=== PATIENT | female | born 1965 | race Asian ===

== ENCOUNTER 2019-06-05 12:50 | Inpatient (IN) | payer OTHER ==
[~2019-06-05] VITALS: Ht 162.6 cm; Wt 65.3 kg
--- NOTE | 2019-06-05 12:51 | NUR ---
PT AMBULATED TO ROOM 7 FOR EVAL.
--- NOTE | 2019-06-05 13:05 | NUR ---
PT PRESENTS TO ED WITH C/O RT LEG PAIN/WEAKNESS WORSENING X4 DAYS. PT STS SHE HAS BEEN DRAGGING HER RT FOOT SINCE FRIDAY AND SHE FEELS PAIN UPON PALPATION. PT DENIES DIZZINESS, CP, SOB. PT AAOX4, RESP E/U, PERRLA NOTED, NO ACUTE DISTRESS NOTED AT THIS TIME.
[2019-06-05 13:15] LABS: BASOPHIL % 0.7 % (0-2); PLATELET COUNT 181 x10^3mcL (130-400); RED CELL DISTRIBUTION WIDTH 13.1 % (11.5-14.5)
[2019-06-05 13:37] LABS: ALBUMIN 3.5 g/dL (3.4-5.0); ALKALINE PHOSPHATASE 67 U/L (46-116); ALT/SGPT 36 U/L (14-59); AST/SGOT 14 U/L (15-37); BILIRUBIN TOTAL 0.46 mg/dL (0.20-1.00); CARBON DIOXIDE 27.9 mmol/L (21-32); CHLORIDE SERUM 106 mmol/L (98-107); CREATININE SERUM 0.9 mg/dL (0.6-1.0); GFR1 > 60 mL/min; GLUCOSE SERUM 171 mg/dL (74-106); POTASSIUM SERUM 3.9 mmol/L (3.5-5.1); SODIUM SERUM 141 mmol/L (136-145); TOTAL PROTEIN, SERUM 6.8 g/dL (6.4-8.2)
--- NOTE | 2019-06-05 14:26 | NUR ---
PT AMBULATED TO RESTROOM, STEADY GAIT NOTED.
--- NOTE | 2019-06-05 15:39 | NUR ---
REPORT GIVEN TO EMS TRANSPORTING PT TO [facility] FOR CT SCAN.
--- NOTE | 2019-06-05 15:42 | NUR ---
MEI CORONEL VIA [facility] FOR CT.
--- NOTE | 2019-06-05 17:11 | NUR ---
PT RETURNED FROM [facility], AAOX4, RESP E/U, NO ACUTE DISTRESS NOTED AT THIS TIME.
--- NOTE | 2019-06-05 18:05 | NUR ---
PT SPEAKING WITH TELE NEURO MD.
--- NOTE | 2019-06-05 19:41 | NUR ---
PT APPEARS TO BE RESTING COMFORTABLY. PT OBSERVED TALKING WITH DAUGHTER AT BEDISDE AND WATCHING TV. VITAL SIGNS STABLE. RESPIRATIONS EVEN AND UNLABORED. NO ACUTE DISTRESS NOTED.
[2019-06-05 19:42] LABS: CHOLESTEROL/HDL RATIO 4.1; PHOSPHOROUS 3.6 mg/dL (2.5-4.9)
[2019-06-05] MEDS ORDERED: SYNTHROID0.05 MG PO (19:43)
[2019-06-05 20:23] LABS: FREE T4 1.15 ng/dL (0.76-1.46); FREE THYROXINE INDEX 3.5 ug/dL (1.4-4.5); T4(THYROXINE) 9.1 ug/dL (4.7-13.3)
--- NOTE | 2019-06-05 20:30 | NUR ---
REPORT GIVEN TO [facility] ON [facility] FOR CONTINUATION OF CARE.
--- NOTE | 2019-06-05 21:11 | NUR ---
RECEIVED PT VIA [employer] FROM E/D, ACCOMPANIED BY RN, TRANSPORTER, PT'S , HILDA PIERCE, AND PT'S DAUGHTER, LOLA PIERCE (ALSO TRAINING COORDINATOR). PT A/A/O X 4, CALM, COOPERATIVE. PT AMBULATORY, ABLE TO WALK WITH SLOW, LIMPING GAIT D/T RLE DISCOMFORT DESCRIBED "LAZY"; FALL RISK PROTOCOL IN PLACE. ON TELE # 8, HR 54, DENIES CHEST PAIN OR DISCOMFORT AT THIS TIME. SCD BY BEDSIDE. NO ACUTE RESPIRATORY DISTRESS NOTED. IV SITE RH 22G, CDI. ORIENTED PT AND FAMILY MEMBERS TO ROOM, BED CONTROLS, CALL LIGHT SYSTEM. SIDE RAILS UP X 2, BED IN LOW POSITION. WILL ENDORSE TO ROJAS POPE.
--- NOTE | 2019-06-05 21:15 | NUR ---
RECEIVED REPORT FROM ROJAS GREGORY. PATIENT WAS SEEN RESTING COMFORTABLY IN BED WITH FAMILY AT BEDSIDE. NO DISTRESS NOTED. BREATHING EVEN AND UNLABORED ON ROOM AIR. NO SOB OR RESP DISTRESS NOTED. IV TO THE RH, 22G. SALINE LOCK. PATENT AND INTACT. NO REDNESS OR SWELLING NOTED. DENIES CHEST PAIN/PRESSURE. NO C/O PAIN. PATIENT REPORTS SHE IS AMBULATORY, BUT WITH A LIMP. SAFETY MEASURES IN PLACE. BED IS LOCKED AND IN THE LOWEST POSITION. SIDE RAILS UP X2. CALL LIGHT IS WITHIN REACH. WILL CONTINUE TO MONITOR.
[2019-06-05 21:32] LABS: T3 TOTAL 0.73 ng/mL
[2019-06-05 21:57] VITALS: BP 114/64
--- NOTE | 2019-06-06 00:07 | NUR ---
RESTING IN BED WITH EYES CLOSED. NO DISTRESS NOTED. BREATHING EVEN AND UNLABORED ON ROOM AIR. NO SOB NOTED. SAFETY MEASURES IN PLACE. CALL LIGHT IS WITHIN REACH. WILL CONTINUE TO MONITOR.
--- NOTE | 2019-06-06 03:00 | NUR ---
RESTING IN BED WITH EYES CLOSED. NO DISTRESS NOTED. BREATHING EVEN AND UNLABORED. NO SOB NOTED. EVEN CHEST RISE AND FALL. NO S/S OF PAIN NOTED. SAFETY MEASURES IN PLACE. CALL LIGHT IS WITHIN REACH. WILL CONTINUE TO MONITOR.
[2019-06-06 05:41] VITALS: BP 108/61
--- NOTE | 2019-06-06 06:42 | NUR ---
RESTED IN LONG INTERVALS THROUGHOUT THE NIGHT. NO ACUTE CHANGES NOTED. NO DISTRESS NOTED. NEURO STATUS WNL. A/OX4. CLEAR AND APPROPIATE SPEECH. BREATHING EVEN AND UNLABORED ON ROOM AIR. NO SOB NOTED. IV TO THE RIGHT HAND, SALINE LOCK. PATENT AND INTACT. NO REDNESS OR SWELLING NOTED. NO C/O PAIN THROUGHOUT THE NIGHT. DENIES CHEST PAIN. COMFORT AND SAFETY MEASURES IN PLACE. CALL LIGHT IS WITHIN REACH. WILL ENDORSE CARE TO DAY SHIFT RN.
[2019-06-06 06:54] LABS: BASOPHIL % 0.7 % (0-2); PLATELET COUNT 183 x10^3mcL (130-400); RED CELL DISTRIBUTION WIDTH 14.1 % (11.5-14.5)
[2019-06-06 07:01] LABS: CALCIUM 8.8 mg/dL (8.5-10.1); CARBON DIOXIDE 29.1 mmol/L (21-32); CHLORIDE SERUM 107 mmol/L (98-107); CREATININE SERUM 0.9 mg/dL (0.6-1.0); GFR1 > 60 mL/min; GLUCOSE SERUM 106 mg/dL (74-106); MAGNESIUM 1.9 mg/dL (1.8-2.4); PHOSPHOROUS 3.9 mg/dL (2.5-4.9); POTASSIUM SERUM 3.9 mmol/L (3.5-5.1); SODIUM SERUM 143 mmol/L (136-145)
--- NOTE | 2019-06-06 08:00 | NUR ---
SHIFT ASSESSMENT DONE. PATIENT A/A/OX4; CLEAR [place] SPEECH. DENIED DIZZINESS AND HEADACHE. TELE#8; SR; HR = 63. DENIED CHESET PAIN. NO RESP DISTRESS ON RA. STATED RLE WEAKNESS X 5 DAYS. AMBULATED ON STEADY GAIT. IVHL'D TO R HAND WITH 22G NEEDLE. DENIED PAIN. TOLERATED CARDIAC DIET BREAKFAST. CALL LIGHT IN REACH.
[2019-06-06 09:02] VITALS: BP 121/66
--- NOTE | 2019-06-06 11:00 | NUR ---
NEW IV INSERTED TO RFA WITH 20G NEEDLE. IVHL'D. IV TO R HAND D/C'D.
[2019-06-06 12:48] VITALS: BP 105/50
[2019-06-06 16:59] VITALS: BP 115/68
[2019-06-06 17:26] VITALS: BP 115/68
--- NOTE | 2019-06-06 17:55 | NUR ---
D/C TO HOME PER ORDER. INSTRUCTION GIVEN. IV D/C'D. CONDITION STABLE. ACCOMPANIED WITH AND DAUGHTER.
[2019-06-07 11:23] VITALS: Ht 162.6 cm; Wt 65.3 kg
== END 2019-06-06 15:57 | disposition home or self-care (01) | DRG 948 ==
LOC: ED 12:50 → DU 19:50
PROVIDERS: Emergency Medicine; ADMIT General Practice
DX: R53.1 Weakness (principal); E03.9 Hypothyroidism, unspecified; M54.9 Dorsalgia, unspecified; G89.29 Other chronic pain; R73.03 Prediabetes
CPT/HCPCS: 83880; 84439; G0378; Q0092; Q9967